=== PATIENT | male | born 1950 | race Caucasian/White ===

== ENCOUNTER 2020-05-20 06:04 | Day surgery (SDC) | payer MEDICARE ==
[~2020-05-20] VITALS: Ht 182.9 cm; Wt 86.2 kg
[2020-05-20 06:39] VITALS: BP 132/80
[2020-05-20] MEDS ORDERED: SODIUM CHLORIDE 0.9% 1,000 ML IV SCH (07:00)
[2020-05-20] MEDS ORDERED: FENTANYL PF 100 MCG/2ML ONE (08:26)
[2020-05-20] MEDS ORDERED: NALOXONE 1 MG/ML, 2ML ONE (08:26)
[2020-05-20] MEDS ORDERED: FLUMAZENIL 0.1 MG/1 ML, 5ML ONE (08:26)
[2020-05-20] MEDS ORDERED: MIDAZOLAM 1 MG/ML, 5ML ONE ×2 (08:26)
== END 2020-05-20 10:00 | disposition home or self-care (01) ==
LOC: OUT 06:04
PROVIDERS: ATTEND Internal Medicine
DX: M25.551 Pain in right hip (principal); R91.8 Other nonspecific abnormal finding of lung field; C76.3 Malignant neoplasm of pelvis; F41.9 Anxiety disorder, unspecified; F32.9 Major depressive disorder, single episode, unspecified; G43.909 Migraine, unspecified, not intractable, without status migrainosus; Z79.899 Other long term (current) drug therapy
CPT/HCPCS: 49180; 77012; 88305; 88341; 88342; 99156; 99157; J2250; J3010; J2310